=== PATIENT | male | born 1995 | race Caucasian/White ===

== ENCOUNTER 2025-05-02 06:14 | Day surgery (SDC) | payer OTHER ==
[~2025-05-02] VITALS: Ht 175.3 cm; Wt 99.3 kg
[~2025-05-02 06:14] MED LIST: HYDR50TA30 PO; IBUP1TAB7 PO
[2025-05-02] MEDS ORDERED: LIDOCAINE 2% 100 MG/5 ML SDV (FOR ANES.) As Ordered ONE (06:45)
[2025-05-02] MEDS ORDERED: dexmedeTOMIDine (4 MCG/ML) 200 MCG/50 ML BTL As Ordered ONE (06:46)
[2025-05-02] MEDS ORDERED: ONDANSETRON 4MG/2ML VIAL As Ordered ONE (06:46)
[2025-05-02] MEDS ORDERED: ACETAMINOPHEN 1000MG/100ML IV BAG As Ordered ONE (06:46)
[2025-05-02] MEDS ORDERED: dexAMETHasone 4 MG/ML 1 ML VIAL As Ordered ONE (06:46)
[2025-05-02] MEDS ORDERED: MIDAZOLAM INJ 2 MG/2 ML VIAL As Ordered ONE (06:52)
[2025-05-02] MEDS ORDERED: ROPIvacaine 0.5% 30ML VIAL PN ONE (07:05)
[2025-05-02] MEDS ORDERED: dexAMETHasone 10 MG/1 ML VIAL PRES.FREE PN ONE (07:05)
[2025-05-02] MEDS ORDERED: LIDOCAINE 1% SDV 5 ML VIAL PN ONE (07:05)
[2025-05-02] MEDS ORDERED: MIDAZOLAM INJ 2 MG/2 ML VIAL IV PRN (07:05)
[2025-05-02] MEDS: TRANEXAMIC ACID 100 MG/ML 10ML VIAL As Ordered ONE (07:06)
[2025-05-02] MEDS: ceFAZolin SOD 2 GM IV ONCE IV ONE (07:41)
[2025-05-02] MEDS: TRANEXAMIC ACID 100 MG/ML 10ML VIAL IV ONE (07:42)
[2025-05-02] MEDS: CLINDAMYCIN 900 MG/50 ML PREMIX BAG As Ordered ONE (07:46)
[2025-05-02] MEDS ORDERED: HYDROmorphone HCL 2 MG/ML 1 ML VIAL As Ordered ONE (08:09)
[2025-05-02] MEDS: EPINEPHrine 1 MG/ML INJ 30 ML MD-VIAL As Ordered ONE (08:10)
[2025-05-02] MEDS ORDERED: MORPHINE 2 MG/ML 1 ML VIAL IV PRN (08:40)
[2025-05-02] MEDS: HYDROMORPHONE HCL 0.5 MG/0.5 ML SYRINGE IV PRN (09:00)
[2025-05-02 10:17] VITALS: BP 136/84; TEMP 97; O2SAT 97
== END 2025-05-02 10:33 | disposition home or self-care (01) ==
LOC: M SDC 06:14
PROVIDERS: ATTEND Student in an Organized Health Care Education/Training Program
DX: M23.322 Other meniscus derangements, posterior horn of medial meniscus, left knee (principal); M22.42 Chondromalacia patellae, left knee; F41.9 Anxiety disorder, unspecified; Z79.899 Other long term (current) drug therapy
CPT/HCPCS: 29875; 29882; C1713; J0131; J0165; J0665; J0688; J0737; J1100; J1171; J2250; J2405; J3010

== ENCOUNTER 2025-06-06 13:42 | Emergency (ER) | payer OTHER ==
[~2025-06-06] VITALS: Ht 175.3 cm; Wt 100.8 kg
[2025-06-06] MEDS ORDERED: AMOX500C (13:57)
[2025-06-06] MEDS ORDERED: RAME8TAB2 (13:57)
[2025-06-06] MEDS ORDERED: ASPI81TA26 (13:57)
[2025-06-06] MEDS ORDERED: ISOVUE-370 76% 100 ML VIAL As Ordered ONE (14:10)
[2025-06-06 14:45] LABS: BASO # 0.1 10^3/uL (0.0-0.2); BASO % 0.7 % (0.0-1.0); EOS # 0.1 10^3/uL (0.0-0.5); EOS % 0.6 % (0.0-3.0); LYMPH # 3.3 10^3/uL (1.5-5.0); LYMPH % 32.3 % (24.0-44.0); MONO # 0.5 10^3/uL (0.0-0.8); MONO % 4.4 % (2.0-8.0); NEUTROPHILS # 6.3 10^3/uL (1.5-8.5); NEUTROPHILS % 61.5 % (36.0-66.0); PLATELET COUNT, AUTOMATED 370 10^3/uL (150-450)
[2025-06-06 15:08] LABS: CALCIUM LEVEL 9.2 MG/DL (8.5-10.1); CARBON DIOXIDE LEVEL 32 MMOL/L (20-31); CHLORIDE LEVEL 101 MMOL/L (98-107); CREATININE FOR GFR 0.85 MG/DL (0.70-1.30); GLOMERULAR FILTRATION RATE > 90.0 (>60); POTASSIUM SERUM 3.7 MMOL/L (3.5-5.1); SODIUM LEVEL 142 MMOL/L (136-145)
[2025-06-06 15:20] LABS: INR 1.05
[2025-06-06] MEDS: NS (Normal Saline) 0.9% 1,000 ML IV ONE (19:29)
[2025-06-06] MEDS: KETOROLAC 30 MG/ML 1 ML VIAL IV ONE (19:30)
[2025-06-06] MEDS ORDERED: AMIT10TA11 PO (19:44)
[2025-06-06] MEDS ORDERED: RIZA10TA64 PO (19:44)
[2025-06-06 20:39] VITALS: BP 122/60; O2SAT 98
[2025-06-06 20:48] VITALS: TEMP 96.8
== END 2025-06-06 20:48 | disposition home or self-care (01) ==
LOC: M ED 13:42
DX: G43.909 Migraine, unspecified, not intractable, without status migrainosus (principal); R00.1 Bradycardia, unspecified; F10.10 Alcohol abuse, uncomplicated; Z79.82 Long term (current) use of aspirin; Z79.2 Long term (current) use of antibiotics; Z79.899 Other long term (current) drug therapy
CPT/HCPCS: 70450; 70496; 70498; 71045; 80047; 80048; 85025; 85610; 85730; 93005; 93041; 94760; 96361; 96374; 96375; 99285; J1885; J2765; Q9967